=== PATIENT | male | born 1950 | race Caucasian/White ===

== ENCOUNTER 2020-11-01 13:17 | Inpatient (IN) | payer MEDICARE ==
[~2020-11-01] VITALS: Ht 177.8 cm; Wt 106.4 kg
[2020-11-01 13:28] VITALS: BP 211/98
[2020-11-01] MEDS ORDERED: NORVASC5 M1 PO (13:29)
[2020-11-01] MEDS ORDERED: CARVEDILOL25 MG PO (13:29)
[2020-11-01] MEDS ORDERED: POTASSIUM20 PO (13:30)
[2020-11-01] MEDS ORDERED: IRON325 M1 PO (13:30)
[2020-11-01] MEDS ORDERED: VITAMIN B-1100 M2 PO (13:31)
[2020-11-01] MEDS ORDERED: OMEPRAZOLE 20 M20 M1 PO (13:31)
[2020-11-01] MEDS ORDERED: FLOMAX0.4 MG PO (13:32)
[2020-11-01] MEDS ORDERED: CHILDREN'S ZYRT10 M1 PO (13:32)
[2020-11-01] MEDS ORDERED: CELEXA 20 MG TA20 MG PO (13:32)
[2020-11-01] MEDS ORDERED: HYDROCHLOROTHIA25 M1 PO (13:33)
[2020-11-01] MEDS ORDERED: GLIMEPIRIDE4 MG PO (13:33)
[2020-11-01] MEDS ORDERED: PRINIVIL40 MG PO (13:34)
[2020-11-01] MEDS ORDERED: ASA81BEC PO (13:34)
[2020-11-01] MEDS ORDERED: EZALLOR SPRINKL20 MG PO (13:35)
[2020-11-01] MEDS ORDERED: FUROSEMIDE 20 M20 MG PO (13:35)
[2020-11-01 13:49] LABS: HEMATOCRIT 32.3 % (42.0-52.0); HEMOGLOBIN 11.1 gm/dL (14.0-18.0); MCH 29.5 pg (26.0-34.0); MCHC 34.3 g/dL (28.0-37.0); MPV 7.1 fl. (7.2-11.1); NUCLEATED RBCS 0 /100WBC; PLATELET COUNT* 220 thou/uL (150-400); RBC 3.75 mil/uL (4.50-6.00); RDW-CV 13.7 % (10.5-14.5); WBC 10.9 thou/uL (4.0-11.0)
[2020-11-01 13:54] LABS: CALCIUM 8.4 mg/dL (8.5-10.1); CREATININE 6.1 mg/dL (0.6-1.3); POTASSIUM 5.3 mmol/L (3.5-5.1)
[2020-11-01 13:58] LABS: ALBUMIN 4.3 g/dL (3.4-5.0); TOTAL BILIRUBIN 0.9 mg/dL (<0.1-1.0); TOTAL PROTEIN 8.6 g/dL (6.4-8.2)
[2020-11-01 14:38] LABS: URINE BILIRUBIN NEGATIVE (Negative); URINE BLOOD 3+ (Negative); URINE CLARITY CLEAR; URINE COLOR YELLOW; URINE GLUCOSE-RANDOM NEGATIVE (Negative); URINE KETONES NEGATIVE (Negative); URINE LEUKOCYTES-REFLEX NEGATIVE (Negative); URINE NITRITE-REFLEX NEGATIVE (Negative); URINE PROTEIN TRACE (Negative); URINE SPECIFIC GRAVITY 1.015 (1.005-1.030); URINE UROBILINOGEN 0.2 E.U./dl (0.2-1.0)
[2020-11-01 14:39] LABS: ABSOLUTE MONOCYTES 0.1 thou/uL (0.0-1.2); ABSOLUTE NEUTROPHILS 9.8 thou/uL (1.6-8.1); APTT 30.1 Seconds (25.0-31.3); INR 1.1; PLATELET ESTIMATE ADEQUATE
[2020-11-01 14:55] LABS: SQUAMOUS 0-3 Few /LPF (0-3)
[2020-11-01 14:56] LABS: URINE WBC-REFLEX 0-5 Rare /HPF (0-5)
[2020-11-01 14:57] LABS: BACTERIA-REFLEX None Seen /HPF (None Seen); CASTS None Seen /LPF (None Seen); CRYSTALS None Seen /LPF (None Seen)
[2020-11-01 16:04] VITALS: BP 165/65
[2020-11-01 16:15] VITALS: BP 198/84
--- NOTE | 2020-11-01 19:17 | NUR ---
PT ARRIVED TO TELE FLOOR FROM ER AROUND 1615, ASSUMED CARE. ADMISISON ASSESSMENT, HISTORY, EDUCATION AND VITALS COMPLETED CHARTED. PT ORIENTED TO ROOM, BED AND CALL LIGHT. RLQ DISCOMFORT, DENIED NEED FOR MEDICAITON FOR PAIN. PT WENT DOWNSTAIRS FOR CYSTOSCOPY AND HAS RETURNED JUST NOW IN STABLE CONDITION .TAVERAS IN PLACE TO DD. FALL PRECAUTIONS IN PLACE. CALL LIGHT WITHIN REACH. HOURLY ROUNDING PERFORMED.
[2020-11-01 20:49] VITALS: BP 181/80
[2020-11-02] VITALS (7 sets, daily range): BP systolic 135–174; BP diastolic 63–79
[2020-11-02 05:07] LABS: HEMATOCRIT 27.3 % (42.0-52.0); HEMOGLOBIN 9.5 gm/dL (14.0-18.0); MCH 29.7 pg (26.0-34.0); MCHC 34.7 g/dL (28.0-37.0); MCV 85.6 fL (80.0-100.0); MPV 7.4 fl. (7.2-11.1); RBC 3.2 mil/uL (4.50-6.00); RDW-CV 14.1 % (10.5-14.5); WBC 7.5 thou/uL (4.0-11.0)
[2020-11-02 05:09] LABS: ALBUMIN 3.5 g/dL (3.4-5.0); CALCIUM 7.7 mg/dL (8.5-10.1); CREATININE 5.4 mg/dL (0.6-1.3); POTASSIUM 4.8 mmol/L (3.5-5.1); TOTAL BILIRUBIN 0.6 mg/dL (<0.1-1.0); TOTAL PROTEIN 7.2 g/dL (6.4-8.2)
--- NOTE | 2020-11-02 06:03 | NUR ---
PT IS ABLE TO COMMUNICATE HIS NEEDS TO STAFF EFFECTIVELY. CURRENT PAIN MEDICATION REGIMEN HAS BEEN ADEQUATE FOR CONTROLLING HIS PAIN UP TO THIS TIME. TAVERAS HAS BEEN PATENT UP TO THIS TIME; SUBSTANTIAL OUTPUT RECORDED.
--- NOTE | 2020-11-02 09:48 | EKG ---
[place] [address] ELECTROCARDIOGRAM REPORT Name: ABDI REESE Room: [address] ADM IN M.R.#: [id number] Admission: 11/01/20 Attend Phys: Omero Guerra Discharge: Date of : 46 Date of Service: 11/01/20 1343 Report #: [id number] THIS REPORT FOR: //name// ED Test Date: 2020-11-01 Test Time: 13:43:52 Pat Name: ABDI REESE Department: Room: [facility] Gender: M Physician Assistant Certified: JED : 1950 Requested By: Mike Nguyne Order Number: [id number] MD: Alex Cui Measurements Intervals [place] Rate: 71 P: 47 KS: 202 QRS: 4 QRSD: 95 T: 19 QT: 426 QTc: 463 Interpretive Statements Sinus rhythm artifact noted No previous ECG available for comparison Electronically Signed On 11-02-2020 9:48:01 CDT by Alex Cui [email or web address] <ELECTRONICALLY SIGNED> By: Alex Cui MD, [facility] 11/02/20 0948 1343 1343 Alex Cui MD, [facility] /EPI
[2020-11-03 03:44] VITALS: BP 163/77
[2020-11-03 04:48] LABS: ALBUMIN 3.3 g/dL (3.4-5.0); CALCIUM 7.6 mg/dL (8.5-10.1); PHOSPHORUS* 3.9 mg/dL (2.5-4.9)
[2020-11-03 04:49] LABS: HEMATOCRIT 25.1 % (42.0-52.0); HEMOGLOBIN 8.7 gm/dL (14.0-18.0); MCH 29.7 pg (26.0-34.0); MCHC 34.7 g/dL (28.0-37.0); MCV 85.6 fL (80.0-100.0); MPV 7.5 fl. (7.2-11.1); RBC 2.93 mil/uL (4.50-6.00); RDW-CV 13.8 % (10.5-14.5); WBC 8.1 thou/uL (4.0-11.0)
[2020-11-03 04:52] LABS: CREATININE 3.7 mg/dL (0.6-1.3); POTASSIUM 3.8 mmol/L (3.5-5.1)
[2020-11-03 04:57] LABS: CALCIUM 7.6 mg/dL (8.5-10.1)
[2020-11-03 04:59] LABS: CREATININE 3.8 mg/dL (0.6-1.3); POTASSIUM 3.8 mmol/L (3.5-5.1)
--- NOTE | 2020-11-03 06:11 | NUR ---
PT SLEPT MOST OF SHIFT. ASSESSMENT DOCUMENTED. MEDS GIVEN PER E-MAR. IV PATENT, FLUIDS INFUSING. PT REPORTED MILD PAIN BUT DID NOT WANT PAIN MEDICATIONS THIS SHIFT. TAVERAS IN PLACE WITH ADEQUATE DRAINAGE. PT ABLE TO MAKE NEEDS KNOWN.
[2020-11-03 09:00] VITALS: BP 162/75
--- NOTE | 2020-11-03 10:34 | NUR ---
CM SPOKE TO THE PT TO DISCUSS CM ASSESSMENT. PT A&O, INDEPENDENT WITH ADL'S, ACTIVE AND DRIVES. PT RESIDES AT HOME WITH SPOUSE. PT OWNS WALKER, CANE (NO MOBILITY DEVICE USED PRIOR TO ADMIT), AND CPAP. PT HAS 0 HX OF HH OR SNF. CM WILL REMAIN AVAILABLE TO ASSIST AND FOLLOW NEEDED.
[2020-11-03 11:50] VITALS: BP 95/54
--- NOTE | 2020-11-03 12:47 | NUR ---
Nutrition: Pt and in room, eating lunch. Good appetite. Admitted for ARF. Consult for "*" Pt and stated they have never been asked to check BG at home. His last A1c was 6.6%. He takes Metformin. They watch his CHOs. They had not nutrition questions today. Wt: 247#. Labs, meds, hx noted. Low nutrition risk.
[2020-11-03 16:04] VITALS: BP 150/64
--- NOTE | 2020-11-03 19:45 | NUR ---
ASSUMED PT CARE AT 0730. PT IS PLEASANTLY A&O X4. ASSESSMENT COMPLETED AND MEDICATIONS ADMINISTERED ORDERED. TAVERAS TO DD WITH HEMATURIA. PT VOICES NO CONCERNS AT THIS TIME. PT UP WITH ASSIST X1. PT DENIES ANY PAIN OR DISCOMFORT. VISITING MOST OF THE DAY.
[2020-11-04] VITALS (7 sets, daily range): BP systolic 143–202; BP diastolic 71–83
[2020-11-04 04:37] LABS: HEMATOCRIT 28.8 % (42.0-52.0); HEMOGLOBIN 9.8 gm/dL (14.0-18.0); MCH 29.6 pg (26.0-34.0); MCV 86.9 fL (80.0-100.0); MPV 7.2 fl. (7.2-11.1); RBC 3.31 mil/uL (4.50-6.00); RDW-CV 13.9 % (10.5-14.5); WBC 9.4 thou/uL (4.0-11.0)
[2020-11-04 04:48] LABS: CALCIUM 7.2 mg/dL (8.5-10.1); POTASSIUM 3.5 mmol/L (3.5-5.1)
[2020-11-04 05:05] LABS: CREATININE 2.4 mg/dL (0.6-1.3)
--- NOTE | 2020-11-04 06:08 | NUR ---
PATIENT SLEPT PART OF THE NIGHT. IV REMAINS SALINE LOCKED. TAVERAS REMAINS TO DEPENDENT DRAIN WITH HEMATURIA STILL. PATIENT WAS GIVEN PAIN MEDICINE ONCE THIS MORNING FOR BACK PAIN. WILL CONTINUE TO MONITOR.
--- NOTE | 2020-11-04 15:23 | NUR ---
PT ROUNDS: PT WILL HAVE LABS DRAWN IN THE AM. DVT PROPHYALXIS. PT/OT TO EVAL & TX. THERE ARE NO ANTICIPATED CM NEEDS AT THIS TIME.
--- NOTE | 2020-11-04 15:32 | NUR ---
ASSUMED PT CARE AT 0730. PT IS PLEASANTLY A&OX4. ASSESSMENT COMPLETED AND PT VOICES NO CONCERNS. TAVERAS DRAINING BLOOD TINGED URINE. PT UP WITH STAND BY ASSIST D/T TAVERAS. VISITING MOST OF THE DAY. ALL MEDICATIONS ADMINISTERED ORDERED. REVIEWED CARE PLAN WITH PT AND SPOUSE.
[2020-11-05 00:29] VITALS: BP 175/73
[2020-11-05 04:25] LABS: CALCIUM 7.7 mg/dL (8.5-10.1); POTASSIUM 3.4 mmol/L (3.5-5.1)
[2020-11-05 04:26] VITALS: BP 133/72
--- NOTE | 2020-11-05 04:49 | NUR ---
PT A&O, VSS ON ROOM AIR, PT UP WITH SBA, IV SALINE LOCKED. PT SR ON TELE MONITOR. URINARY CATHETER IN PLACE, BLOOD TINGED. AT APPROX 0405 PT CO NAUSEA AND NECK PAIN, PT GIVEN ORDERED PRN TYLENOL AND ZOFRAN. PT HAS BEEN SLEEPING WELL THROUGHOUT NIGHT. WILL CONTINUE TO MONITOR.
[2020-11-05 07:58] VITALS: BP 157/78
--- NOTE | 2020-11-05 09:32 | NUR ---
ASSUMED CARE OF PT THIS AM AROUND 0715- HORSE FARM MANAGER IN PLACE ORDERED, TRACING SR- UPON ASSESSMENT PT NOTED TO BE RESTING IN BED- PT A&O X4- CONT OF BOWEL, TAVERAS IN PLACE DRAINING DARK RED BLOOD- SBA WITH RW FOR TRANSFERS- DIMINISHED LUNG SOUNDS, DYSPNEA NOTED ON EXERTION- VSS, O2 SAT 95% ON RA- ABD SOFT/ROUND/NON-TENDER, BS X4 QUADS- LAST BM REPORTED X2 DAYS AGO- IV NOTED TO LEFT AC INTACT AND SL- 2+ BLE EDEMA NOTED- PT RATES PAIN 8/10 TO RIGHT NECK, PRN OXY GIVEN AT 0808, PT REPORTS PARTIAL RELIEF- CALL LIGHT AND PERSONAL BELONGINGS WITH IN REACH- HOURLY ROUNDS IN PLACE R/T SAFETY/NEEDS- BED ALARM IN PLACE AND WORKING FOR SAFETY- ALL NEEDS MET AT THIS TIME
[2020-11-05 12:17] VITALS: BP 182/62
--- NOTE | 2020-11-05 15:07 | NUR ---
PLAN OF CARE: PLAN FOR PT TO POSSIBLY D/C HOME TOMORROW. NO CM D/C PLANNING NEEDS ANTICIAPTED. CM WILL REMAIN AVAILABLE TO ASSIST AND FOLLOW NEEDED.
[2020-11-05 16:04] VITALS: BP 141/70
[2020-11-05 19:45] VITALS: BP 150/69
[2020-11-06] VITALS: BP 145/66
[2020-11-06 04:00] VITALS: BP 167/72
[2020-11-06 04:29] LABS: HEMATOCRIT 24.4 % (42.0-52.0); HEMOGLOBIN 8.4 gm/dL (14.0-18.0); MCHC 34.6 g/dL (28.0-37.0); MCV 86.7 fL (80.0-100.0); MPV 7.2 fl. (7.2-11.1); RBC 2.81 mil/uL (4.50-6.00); WBC 8.2 thou/uL (4.0-11.0)
[2020-11-06 04:33] LABS: CALCIUM 8.1 mg/dL (8.5-10.1); CREATININE 1.8 mg/dL (0.6-1.3); POTASSIUM 3.5 mmol/L (3.5-5.1)
--- NOTE | 2020-11-06 06:35 | NUR ---
NO ACUTE CHANGES THROUGHOUT SHIFT. PLEASE SEE CHARTING FOR DETAILS. ALL ROUNDINGS COMPLETED, ALL NEEDS MET. BED LOCKED AND CALL LIGHT IN REACH.
[2020-11-06 07:40] VITALS: BP 157/69
--- NOTE | 2020-11-06 09:00 | NUR ---
ASSUMED CARE OF PT THIS AM AROUND 0715- DIE SETTER IN PLACE ORDERED, TRACING SR- UPON ASSESSMENT PT NOTED TO BE RESTING IN BED, WATCHING TV- PT A&O X4- CONT OF BOWEL, TAVERAS IN PLACE D/D DARK RED BLOOD- TAVERAS TO BE D/C'D THIS SHIFT AND PT MONITORED FOR ABLE TO VOID FOR POSSIBLE D/C PER UROLOGY THIS AM- LCTA, RESP EVEN AND UN-LABORED- VSS, O2 SAT 94% ON RA- ABD SOFT/OBESE/NON-TENDER, BS X4 QUADS- LAST BM REPORTED X2 DAYS AGO- IV NOTED TO LEFT AC INTACT AND SL- GOOD PO INTAKE NOTED THIS AM WITH BRAKFAST- PT C/O PAIN 01/01 TO NECK THIS AM, PRN TYLENOL GIVEN, PT REPORTS PARTIAL RELIEF- CALL LIGHT AND PERSONAL BELONGINGS WITH IN REACH- ALL NEEDS MET AT THIS TIME
[2020-11-06 11:42] VITALS: BP 125/62
[2020-11-06 12:48] VITALS: BP 125/62
--- NOTE | 2020-11-06 13:12 | NUR ---
PLAN FOR PT TO D/C HOME TODAY. NURSING TO REMOVE PT TAVERAS AND DO VOIDING TRIAL. IF THE TAVERAS HAS TO BE REPLACED PT WILL D/C HOME WITH NURSING ONLY. CM WILL REMAIN AVAILABLE TO ASSIST AND FOLLOW NEEDED.
--- NOTE | 2020-11-07 12:59 | H ---
[place] [address] HISTORY AND PHYSICAL Name: ABDI REESE Room: [address]R.#: [id number] Admission: 11/01/20 Attend Phys: Shorty Rosales Discharge: 11/06/20 Date of : 46 Report #: [id number] THIS REPORT FOR: cc: Megan Urias Stefany RNP Khan, Abid R. MD ~ DATE OF SERVICE: 11/01/2020 NEPHROLOGY CONSULT CONSULTING PHYSICIAN: Omero Guerra DO REASON FOR CONSULT: Acute kidney injury. HISTORY OF PRESENT ILLNESS: A 70-year-old gentleman, came in with complaints of flank pain for the past 4 days or so. He had a CT scan showing bilateral hydronephrosis without obvious obstruction. He had been experiencing increasing swelling in his lower extremities. He is feeling much better after having bilateral ureteral stents placed yesterday by Urology. Currently, has no complaints. He has no preexisting history of kidney disease. REVIEW OF SYSTEMS: Constitutional, psych, heme, eyes, ENT, respiratory, cardiac, GI, , endocrine, all negative except as documented above. PAST MEDICAL HISTORY: Hypertension, history of parathyroid removal, dyslipidemia. I believe he has a history of BPH as he is on tamsulosin. CURRENT MEDICATIONS: Reviewed. FAMILY HISTORY: Not pertinent in this 70-year-old gentleman. SOCIAL HISTORY: No current tobacco. PHYSICAL EXAMINATION: VITAL SIGNS: Blood pressure is 150/70, pulse 71, respirations 19, temperature 36.4. GENERAL: No acute distress. EYES: Open. EARS: Externally normal. NECK: Supple. CARDIOVASCULAR: Regular rate. LUNGS: No crackles. ABDOMEN: Soft. MUSCULOSKELETAL: Nontender. PSYCHIATRIC: Awake, [place] [address] HISTORY AND PHYSICAL Name: ABDI REESE Tian Room: [address]#: [id number] Admission: 11/01/20 Attend Phys: Shorty Rosales Discharge: 11/06/20 Date of : 46 Report #: [id number] LABORATORY DATA: White cell count 7.5, hemoglobin 9.5, platelets 193. Sodium 140, potassium 4.8, chloride 103, bicarbonate 23, BUN 83, creatinine 5.4, glucose 137, calcium 7.7, albumin 3.5. ASSESSMENT: 1. Acute kidney injury secondary to obstruction. Baseline creatinine is unknown. He had bilateral hydronephrosis on CT without obvious obstruction. UA showed hematuria. He was on lisinopril, Lasix and hydrochlorothiazide at home. Admission creatinine was 6.1. 2. Hematuria. 3. Bilateral hydronephrosis, status post bilateral stents. 4. Anemia. 5. Hypertension. 6. Dyslipidemia. PLAN: Good urine output. Creatinine is 5.4. Urology following. Status post bilateral ureteral stents. Discontinue lisinopril and hydrochlorothiazide. Check CK and continue IV fluids. Case was discussed with Dr. Guerra. Thank you for requesting my opinion in the care and management of this patient. <ELECTRONICALLY SIGNED> By: Gino Lao MD 11/07/20 1259 0954 [id number] Lao MD /nt
== END 2020-11-06 14:50 | disposition home health service (06) | DRG 660 ==
LOC: M.ERS 13:17 → M.2W 14:35 → M.TBA-ER 14:35 → M.2W 16:29
PROVIDERS: Family Medicine; Internal Medicine; Internal Medicine Nephrology; Physician Assistant; Urology; ADMIT Internal Medicine; ATTEND Internal Medicine
PROC: BT141ZZ Fluoroscopy of Kidneys, Ureters and Bladder using Low Osmolar Contrast (ICD-10-PCS; principal; 2020-11-01)
PROC: 0T788DZ Dilation of Bilateral Ureters with Intraluminal Device, Via Natural or Artificial Opening Endoscopic (ICD-10-PCS; principal; 2020-11-01)
DX: N17.0 Acute kidney failure with tubular necrosis (principal); R71.0 Precipitous drop in hematocrit; Z20.822 Contact with and (suspected) exposure to COVID-19; I10 Essential (primary) hypertension; E78.5 Hyperlipidemia, unspecified; F32.9 Major depressive disorder, single episode, unspecified; E78.00 Pure hypercholesterolemia, unspecified; E11.9 Type 2 diabetes mellitus without complications; N40.1 Benign prostatic hyperplasia with lower urinary tract symptoms; R33.8 Other retention of urine; K21.9 Gastro-esophageal reflux disease without esophagitis; E87.6 Hypokalemia; R31.0 Gross hematuria; N13.1 Hydronephrosis with ureteral stricture, not elsewhere classified; Z79.899 Other long term (current) drug therapy; Z79.82 Long term (current) use of aspirin; Z87.891 Personal history of nicotine dependence

== ENCOUNTER → 2020-12-04 | Day surgery (SDC) | payer MEDICARE ==
[~2020-12-04] MED LIST: ASA81BEC PO; BACTRIM DS TAB1 EAC1 PO; CARVEDILOL25 MG PO; CELEXA 20 MG TA20 MG PO; CHILDREN'S ZYRT10 M1 PO; EZALLOR SPRINKL20 MG PO; FLOMAX0.4 MG PO; FUROSEMIDE 20 M20 MG PO; GLIMEPIRIDE4 MG PO; HYDROCHLOROTHIA25 M1 PO; IRON325 M1 PO; NORVASC5 M1 PO; OMEPRAZOLE 20 M20 M1 PO; POTASSIUM20 PO; PRINIVIL40 MG PO; VITAMIN B-1100 M2 PO
--- NOTE | ~2020-12-04 | OP ---
[address] [address] OPERATIVE REPORT Name: ABDI REESE Room: [facility]#: [id number] Admission: 12/04/20 Attend Phys: Samuel Barfield MD Discharge: Date of : 46 Report #: [id number] THIS REPORT FOR: cc: Megan Urias Stefany RNP Haggard, Kent L MD ~ DATE OF SERVICE: 12/04/2020 PREOPERATIVE DIAGNOSIS: Bilateral hydronephrosis. POSTOPERATIVE DIAGNOSIS: Bilateral ureteropelvic junction obstruction. PROCEDURE: Cystoscopy, right stent removal, right ureteroscopy, left stent removal, left ureteroscopy. STAFF SURGEON: Samuel Barfield MD ANESTHESIA: General. ESTIMATED BLOOD LOSS: None. COMPLICATIONS: None. SPECIMENS: None. DRAIN: None. INDICATIONS FOR PROCEDURE: The patient is a pleasant 70-year-old white male who developed acute onset right flank pain, presented to [facility] where a CT scan confirmed bilateral UPJ obstruction with actually what appears to be a forniceal tear and extravasation of the ureter on the right hand side. He underwent urgent cystoscopy, bilateral retrograde pyelograms, bilateral ureteral stent placement about a month ago. He now presents for further evaluation of these findings. He now presents for cystoscopy, bilateral ureteral stent removal, bilateral ureteroscopy, possible biopsy if indicated, possible bilateral ureteral stent placement. After risks and benefits of the procedure were explained, informed consent was obtained. DESCRIPTION OF PROCEDURE: The patient was taken to the operating room comfortably placed in the dorsal lithotomy position under adequate general anesthesia. He was sterilely prepped and draped in sterile fashion exposing only the genitalia. He received his antibiotic therapy as prescribed with Ancef. Appropriate timeout was carried out and all were in agreement. A 21-Malaysian cystoscope was placed into the urethra. Anterior urethra normal, sphincter intact. Prostate showed some bilobar [place] [address] OPERATIVE REPORT Name: ABDI REESE Room: [facility]#: [id number] Admission: 12/04/20 Attend Phys: Samuel Barfield MD Discharge: Date of : 46 Report #: [id number] was systematically viewed. Stent protruding from each ureteral orifice with adjacent edema, otherwise unremarkable. [id number] bladder trabeculation identified. Grasping forceps used to grasp the right ureteral stent, brought out through the urethral meatus. A 0.035 Glidewire was advanced coaxially through the existing stent at level of kidney. The old stent was removed. A 4.5 Malaysian tapered to a 6.5 Malaysian Carrillo semirigid ureteroscope advanced through the urethra up the right ureter and gently placed at the pelvic brim placed a second 0.035 Glidewire through the ureteroscope and slowly advanced the ureteroscope over the guidewire up into the renal pelvis. The guidewire was removed taking very careful inspection of the ureteropelvic junction showing smooth transition, no sign of irregularity in the ureteropelvic junction, either in the renal pelvis or in the ureter itself. See pictures for details. Since no gross abnormalities are found, suspect was chronic in nature, some reason was acute, which caused extravasation. The ureteroscope was removed along with the second guidewire. The cystoscope was placed back through the urethra into the bladder. Grasping forceps were used to grasp the left ureteral stent, brought it out through the urethral meatus. A 0.035 Glidewire was advanced through the existing stent at level of the kidney. The old stent was removed and a 4.5 Malaysian tapered to 6.5 Malaysian Carrillo semirigid ureteroscope advanced through the urethra up the left ureter and gently placed all the way up into the proximal ureter, did place a second wire through the ureteroscope to reach the renal pelvis and again careful inspection of the ureteropelvic junction area smooth, both the renal pelvis in the ureter. No sign of mass effect or stone. The guidewire was removed along with the ureteroscope. Cystoscope was placed through the urethra into the bladder and the bladder was drained. Cystoscope was removed. He tolerated the treatment well. He was extubated in the operating room and transferred to [facility] with assistance and went to recovery in stable condition. We will see him back in our office in 6 weeks with a nuclear medicine renal scan with Lasix washout to assess drainage in both kidneys. By: [id number] Barfield MD /nt
[2020-12-04 11:51] LABS: HEMOGLOBIN 10.3 gm/dL (14.0-18.0); MCH 30.5 pg (26.0-34.0); MCHC 34.4 g/dL (28.0-37.0); MCV 88.8 fL (80.0-100.0); RBC 3.38 mil/uL (4.50-6.00); RDW-CV 15.3 % (10.5-14.5)
[2020-12-04 11:58] LABS: CALCIUM 8.9 mg/dL (8.5-10.1); CREATININE 1.3 mg/dL (0.6-1.3); POTASSIUM 4.3 mmol/L (3.5-5.1)
[2020-12-04 12:02] LABS: ALBUMIN 3.7 g/dL (3.4-5.0); TOTAL BILIRUBIN 0.5 mg/dL (<0.1-1.0); TOTAL PROTEIN 7.9 g/dL (6.4-8.2)
== END | disposition home or self-care (01) ==
LOC: M.SUR 07:38
PROVIDERS: Anesthesiology; ATTEND Urology
DX: N13.0 Hydronephrosis with ureteropelvic junction obstruction (principal); R10.9 Unspecified abdominal pain; I10 Essential (primary) hypertension; E11.9 Type 2 diabetes mellitus without complications; Z98.890 Other specified postprocedural states; Z79.899 Other long term (current) drug therapy; Z79.82 Long term (current) use of aspirin